=== PATIENT | female | born 1970 | race Caucasian/White ===

== ENCOUNTER 2020-09-06 09:10 | Emergency (ER) | payer OTHER, SELFPAY ==
[2020-09-06 09:25] VITALS: BP 123/73; PULSE 68; RESP 20; TEMP 36.4; O2SAT 98; BMI 23.3
--- NOTE | 2020-09-06 09:25 | XR_ITS ---
EXAMINATION: XR CHEST CLINICAL INFORMATION: Cough, wheeze COMPARISON: 08/24/2018 TECHNIQUE: Frontal view of the chest was obtained. FINDINGS: Lungs are clear. No definite bronchial wall thickening. No focal consolidation or mass. Normal pulmonary vascularity. No pleural effusion or pneumothorax. Normal heart size. No acute osseous abnormality. XR/XR chest 1V IMPRESSION: No acute pulmonary disease. No significant change from prior study.
[2020-09-06] MEDS: Albuterol Sulfate 90 MCG 8 GM INHALER 4 PUFF INHALE (09:55)
--- NOTE | 2020-09-06 10:03 | ED.URI ---
HPI - URI/Sore Throat General Chief Complaint: Upper Respiratory Symptoms <RINA Jain Last Filed: 09/06/20 10:11> Stated Complaint: cough - covid swab <RINA Jain Last Filed: 09/06/20 10:11> Time Seen by Provider: 09/06/20 09:25 <RINA Jain Last Filed: 09/06/20 10:11> Source: patient <RINA Jain Last Filed: 09/06/20 10:11> Mode of arrival: ambulatory <RNIA Jain Last Filed: 09/06/20 10:11> History of Present Illness HPI Narrative: 49-year-old female with a past medical history of asthma presenting to the ED complaining of productive cough x2 days with associated wheezing. Admits to mild SOB. Denies fever, chills, sore throat, CP, recent travel, [place] edema, sick contacts <RINA Jain Last Filed: 09/06/20 10:11> MD elicited complaint: cough <IRNA Jain Last Filed: 09/06/20 10:11> Related Data Home Medications: Previous Rx's Medication Instructions Recorded benzonatate [Tessalon Perles] 100 mg PO TID PRN #15 cap 09/06/20 <RINA Jain Last Filed: 09/06/20 10:11> Allergies/Adverse Reactions: Allergies Allergy/AdvReac Type Severity Reaction Status Date / Time aspirin Allergy Mild RASH Unverified 07/14/20 15:30 From [facility]ENT[facility] Allergy Mild RASH Uncoded 07/14/20 15:30 <RINA Jain Last Filed: 09/06/20 10:11> Review of Systems Review of Systems: Constitutional: No Weight loss, No Fever, No Chills ENT/Mouth: No Ear Pain, No Nasal Congestion, No Sinus Pain, No Hoarseness, No sore throat, No Rhinorrhea Cardiovascular: No Chest Pain, + SOB Respiratory: +Cough, No Sputum, +Wheezing Gastrointestinal: No Nausea, No Vomiting, No Diarrhea, No Constipation, No Abdominal pain Skin: No Skin Lesions, No rash <RINA Jain Last Filed: 09/06/20 10:11> Yes all other systems are reviewed and are negative <RINA Jain - Last Filed: 09/06/20 10:11> [facility] Past Medical History Attestation statement: The following information was validated with the patient. <RINA Jain - Last Filed: 09/06/20 10:11> Medical History: Medical History (Updated 09/07/20 @ 00:21 by Jose Burger) Asthma <RINA Jain - Last Filed: 09/06/20 10:11> Social History Social History: Social History Advance Directives: Yes Advance Directives Information Provided: Yes Advance Directives on File: No <RINA Jain - Last Filed: 09/06/20 10:11> Physical Exam Vital Signs: Vital Signs: Last Vital Signs Temp 97.6 F 09/06/20 09:25 Pulse 68 09/06/20 09:25 Resp 09/06/20 09:25 BP 123/73 09/06/20 09:25 Pulse Ox 98 09/06/20 09:25 Body Mass Index 23.3 <RINA Jain - Last Filed: 09/06/20 10:11> Vital Signs: Last Vital Signs Temp 97.6 F 09/06/20 09:25 Pulse 68 09/06/20 09:25 Resp 09/06/20 09:25 BP 123/73 09/06/20 09:25 Pulse Ox 98 09/06/20 09:25 Body Mass Index 23.3 <Del Ruiz MD - Last Filed: 09/09/20 02:37> Const: General: cooperative and healthy appearing <RINA Jain - Last Filed: 09/06/20 10:11> Orientation/consciousness: patient oriented x3 <RINA Jain - Last Filed: 09/06/20 10:11> Limitations: no limitations <RINA Jain - Last Filed: 09/06/20 10:11> HENMT: Head: Yes normal to inspection <RINA Jain - Last Filed: 09/06/20 10:11> Ears: hearing grossly normal bilaterally <RINA Jain - Last Filed: 09/06/20 10:11> General nose exam: Normal external nose present <RINA Jain - Last Filed: 09/06/20 10:11> Face and sinus: Yes normal facial exam <Sujatha Jacobs PA - Last Filed: 09/06/20 10:11> Eyes: General: appearance normal, both eyes and all related structures <Sujatha Jacobs PA - Last Filed: 09/06/20 10:11> EOM: EOMs intact bilaterally <Sujatha Jacobs PA - Last Filed: 09/06/20 10:11> Neck: Neck: Yes normal visual inspection <RINA Jain - Last Filed: 09/06/20 10:11> Resp: Effort & Inspection: normal respiratory effort <Sujatha Jacobs PA - Last Filed: 09/06/20 10:11> Auscultation: clear to auscultation bilaterally, no crackles, no rhonchi and wheezes (Mild end expiratory wheeze) <Sujatha Jacobs PA - Last Filed: 09/06/20 10:11> Cardio: Rate: regular rate <Sujatha Jacobs DC - Last Filed: 09/06/20 10:11> Heart sounds: S1 normal heart sound present and S2 normal heart sound present <Sujatha Jacobs PA - Last Filed: 09/06/20 10:11> Skin: Rashes: no rashes <RINA Jain - Last Filed: 09/06/20 10:11> Wounds: no wounds <Sujatha Jacobs PA - Last Filed: 09/06/20 10:11> Neuro: General: patient oriented x3 <RINA Jain - Last Filed: 09/06/20 10:11> Gait exam (Neuro): Normal gait present <RINA Jain - Last Filed: 09/06/20 10:11> Extrem: General: Yes normal to inspection <RINA Jain - Last Filed: 09/06/20 10:11> Course Course Course Narrative: --CXR unremarkable Patient was supplied with albuterol inhaler today in the ED <RINA Jain - Last Filed: 09/06/20 10:11> I have reviewed the chart <Del Ruiz MD - Last Filed: 09/09/20 02:37> MDM - URI/Sore Throat MDM Narrative Medical decision making narrative: On exam VSS, NAD/well-appearing, lungs with mild end expiratory wheeze, moving good air, concern for viral syndrome/COVID-19/ bronchitis/pneumonia. Plan: CXR, albuterol inhaler, COVID-19 <RINA Jain - Last Filed: 09/06/20 10:11> Lab Data Labs: Lab Results 09/06/20 09/06/20 Range/Units 10:38 10:39 Coronavirus (PCR) Cancelled COVID-19 ([facility]) Negative (Negative) COVID-19 Clin Com See Note Influenza Type A (PCR) Cancelled Influenza Type B (PCR) Cancelled Influenza A & B Note Cancelled RSV RNA Qual (PCR) Cancelled <RINA Jain - Last Filed: 09/06/20 10:11> Lab Results 09/06/20 09/06/20 Range/Units 10:38 10:39 Coronavirus (PCR) Cancelled COVID-19 ([facility]) Negative (Negative) COVID-19 Clin Com See Note Influenza Type A (PCR) Cancelled Influenza Type B (PCR) Cancelled Influenza A & B Note Cancelled RSV RNA Qual (PCR) Cancelled <Del Ruiz MD - Last Filed: 09/09/20 02:37> Discharge Plan Discharge Clinical Impression: Upper respiratory infection <RINA Jain - Last Filed: 09/06/20 10:11> Patient Disposition: Home, Self-Care <RINA Jain - Last Filed: 09/06/20 10:11> Instructions: Upper Respiratory Infection (ED) <RINA Jain - Last Filed: 09/06/20 10:11> Additional Instructions: Your x-ray was unremarkable today in the ED Use albuterol inhaler that your supplied within the ED every 4-6 hours at home Tessalon Perlanthony for cough, take as needed Based on your symptoms and history we have sent a COVID-19. Although your RESULT IS PENDING at this time. RESULTS should return within 72 hours. At this time you will be contacted with either NEGATIVE OR POSITIVE results. -Please wait until we contact you for your results. At this time you will be okay for discharge. Please plan for self quarantine for up to 14 days. Do not expose yourself to others. You may not go to work. If testing does come back negative you may return to activities as long as you are no longer having any symptoms for at least 3 days. Please continue to follow cold instructions and wash your hands frequently. You may take Tylenol as directed on the bottle for pain or fever. Patient seen in the emergency department on 04/22/2020 and should be excused from work until negative test results AND until 72 hours without any symptoms AND at least 10 days have passed since symptoms first appeared or since last exposure to COVID-19 positive patient CDC Guidelines for home isolation: - Stay away from others - WEAR A MASK if you are sick AND STAY HOME - Cover your mouth and nose with a tissue when you cough or sneeze. Dispose of tissues in a lined trash can and wash your hands immediately with soap and water for at least 20 seconds. If soap and water are not available, clean hands with alcohol-based hand student success coach that contains at least 60% alcohol. - Clean your hands often with soap and water for at least 20 seconds - Avoid touching your eyes, nose and mouth with unwashed hands - Do not share dishes, drinking glasses, cups, eating utensils, towels, or bedding with other people in your home. After using these items, wash them thoroughly with soap and water or put in the medical records supervisor. - Clean high-touch surfaces in your isolation area ( sick room and bathroom) every day; let a caregiver clean and disinfect high-touch surfaces in other areas of the home. Clean the area or item with soap and water or another detergent if it is dirty. Then, use a household disinfectant. - Limit contact with pets and animals: If you must care for a pet, wash your hands before and after interacting with them) <RINA Jain - Last Filed: 09/06/20 10:11> Prescriptions: New benzonatate [Tessalon Perles] 100 mg capsule 100 mg PO TID PRN (Reason: cough) Qty: 15 RF: 0 <RINA Jain - Last Filed: 09/06/20 10:11> Referrals: Physician,Unknown [Primary Care Provider] - 5 days (Your doctor) <RINA Jain Last Filed: 09/06/20 10:11> Interventions: ED Discharge Assessment Last Done: 09/06/20 10:40 <RINA Jain - Last Filed: 09/06/20 10:11> Discharge Date/Time: 09/06/20 10:40 <RINA Jain - Last Filed: 09/06/20 10:11>
[2020-09-06 11:17] LABS: COVID-19 Test Negative (Negative)
== END 2020-09-06 10:40 | disposition home or self-care (01) ==
PROVIDERS: Physician Assistant; Emergency Provider Emergency Medicine
DX: J06.9 Acute upper respiratory infection, unspecified (principal); R05 Cough; Z20.828 Contact with and (suspected) exposure to other viral communicable diseases
CPT/HCPCS: 0241U; 71045; 87635; 94640; 94664; 99283; 99284

== ENCOUNTER → 2023-01-07 13:19 | Outpatient (BNVA) | payer OTHER, SELFPAY | PROVIDERS: PCP Physician Assistant Medical; Visit Provider Anesthesiology | DX: G89.4 Chronic pain syndrome (principal); M47.812 Spondylosis without myelopathy or radiculopathy, cervical region; M47.816 Spondylosis without myelopathy or radiculopathy, lumbar region; M94.0 Chondrocostal junction syndrome [Tietze]; G56.00 Carpal tunnel syndrome, unspecified upper limb | CPT/HCPCS: 99202 ==